=== PATIENT | male | born 1990 | race Caucasian/White ===

== ENCOUNTER → 2019-06-06 15:59 | Outpatient (CLI) | payer BC, SELFPAY ==
--- NOTE | 2019-06-06 16:07 | XR_ITS ---
PROCEDURE: XR ANKLE WT BEARING LT MIN 3V CLINICAL INDICATION: fracture Follow-up fracture COMPARISON: XR ANKLE LT MIN 3V from 05/16/2019 FINDINGS: There is an old avulsion fracture at the tip of the medial malleolus. No acute fracture or dislocation is evident. IMPRESSION: No change with no acute finding Dictated by: Ad Rucker MD 06/06/2019 16:43 Electronically signed by Ad Rucker MD in [place] 06/06/2019 16:43
== END ==
PROVIDERS: Visit Provider Podiatrist
DX: S82.892A Other fracture of left lower leg, initial encounter for closed fracture (principal)
CPT/HCPCS: 73610

== ENCOUNTER → 2019-06-29 11:12 | Outpatient (CLI) | payer BC, SELFPAY ==
--- NOTE | 2019-06-29 11:16 | XR_ITS ---
PROCEDURE: XR ANKLE WT BEARING RT MIN 3V CLINICAL INDICATION: ankle pain COMPARISON: XR ANKLE LT MIN 3V from 05/16/2019 XR ANKLE WT BEARING LT MIN 3V from 06/29/2019 FINDINGS: There is an old fracture versus accessory center of ossification at the tip of the medial malleolus. No other significant anomalies are evident. Joint spaces are well preserved. IMPRESSION: No acute finding. Old fracture versus unfused ossification center at the medial malleolus Dictated by: Ad Rucker MD 06/29/2019 14:55 Electronically signed by Ad Rucker MD in [place] 06/29/2019 14:55
--- NOTE | 2019-06-29 11:16 | XR_ITS ---
PROCEDURE: XR ANKLE WT BEARING LT MIN 3V CLINICAL INDICATION: fracture/dislocation Follow-up fracture COMPARISON: XR FOOT LT MIN 3V from 05/16/2019 XR ANKLE LT MIN 3V from 05/16/2019 XR ANKLE WT BEARING LT MIN 3V from 06/06/2019 FINDINGS: Old avulsion fracture of the medial malleolus once again noted. Minimal hyperostosis along the neck of the talus anteriorly is noted. IMPRESSION: Chronic changes, no acute finding Dictated by: Ad Rucker MD 06/29/2019 14:48 Electronically signed by Ad Rucker MD in [place] 06/29/2019 14:48
== END ==
PROVIDERS: Visit Provider Podiatrist
DX: S82.892A Other fracture of left lower leg, initial encounter for closed fracture (principal); M79.672 Pain in left foot; M79.671 Pain in right foot
CPT/HCPCS: 73610

== ENCOUNTER 2021-12-16 12:37 | Emergency (ER) | payer SELFPAY ==
[2021-12-16 12:45] VITALS: BP 122/88; PULSE 125; RESP 18; TEMP 38.1; O2SAT 95; BMI 29.8
[2021-12-16 13:38] VITALS: BP 122/88; PULSE 125; RESP 20; TEMP 38.1; O2SAT 100; BMI 29.8
[2021-12-16 13:43] LABS: UTC Influenza A Antigen Negative (Negative); UTC Influenza B Antigen Negative (Negative)
--- NOTE | 2021-12-16 14:37 | HMH.EDUTC ---
[facility] [place] Disposition Clinical Impression: Viral syndrome Pharyngitis Qualifiers: Pharyngitis/tonsillitis etiology: unspecified etiology Qualified Code(s): J02.9 - Acute pharyngitis, unspecified Disposition: Home, Self-Care Condition on Discharge: Good Instructions: DI for Strep Throat Additional Instructions: Drink plenty of fluids. Take tylenol or ibuprofen for pain or fever. Take the medications as directed. Follow up with your regular doctor. GO TO THE ER FOR ANY WORSENING SYMPTOMS Prescriptions: Promethazine/Dextromethorphan [Promethazine-Dm Syrup] 5 ml PO Q6HP PRN #240 ml PRN Reason: Cough [facility]: [facility] Ibuprofen [Ibuprofen 800mg Tablet] 800 mg PO Q8HP PRN #30 tab PRN Reason: Moderate Pain Transmission Status[facility] Ondansetron [Zofran 4mg ODT] 4 mg PO Q8HP PRN #20 tab PRN Reason: Nausea Transmission Status[facility] Azithromycin [Z-Jb 250mg Tab*] 250 mg PO UD DOSE PK #6 tab Transmission Status: [facility] Referrals: Cuauhtemoc Lilly MD [Primary Care Provider] - Forms: Work/School Release Time of Disposition: 14:44 Medical Decision Making - Medical Records Medical records reviewed: No: I reviewed the patient's medical records. - Roberto Carlos Inquiry Pt receiving controlled substance: No Vital Signs: 12/16/21 12:45 12/16/21 13:38 12/16/21 15:05 Temperature 100.5 F H 100.5 F H 100.5 F H Temperature Source Oral Oral Pulse Rate 125 H Pulse Rate [Right Radial] 125 H 125 H Respiratory Rate 18 20 20 Blood Pressure 122/88 Blood Pressure [Right Arm] 122/88 122/88 Blood Pressure Mean [Right Arm] 99 99 Blood Pressure Position [Right Arm] Sitting 02 Sat by Pulse Oximetry 95 100 Oxygen Delivery Method Room Air - Lab Data Lab results reviewed: Yes: I reviewed the patient's lab results. Lab Results 12/16/21 13:22: Influenza Type A Ag Negative, Influenza Type B Ag Negative 12/16/21 14:26: Group A Strep Rapid Negative 12/16/21 14:50: Chlamy pneumoniae PCR Not detected, Adenovirus (PCR) Not detected, B. pertussis DNA (PCR) Not detected, Coronavirus OC43 (PCR) Not detected, Coronavirus HKU1 (PCR) Not detected, Coronavirus 229E (PCR) Not detected, SARS-CoV-2 (PCR) Detected A, Coronavirus NL63 (PCR) Not detected, Human Metapneumovir PCR Not detected, Influenza A (H1) PCR Not detected, Influ A (H1N1/09) PCR Not detected, Influenza A (H3) PCR Not detected, Influenza Type A (PCR) Not detected, Influenza Type B (PCR) Not detected, M. pneumoniae (PCR) Not detected, Parainfluenza 1 (PCR) Not detected, Parainfluenza 2 (PCR) Not detected, Parainfluenza 3 (PCR) Not detected, Parainfluenza 4 (PCR) Not detected, RSV (PCR) Not detected, Entero/Rhino (PCR) Not detected Orders (Tests/Meds): ORDERS Category Date Time Status Strep Screen Confirmation Stat Micro 12/16/21 14:26 Received [facility] [place] HPI - General Stated complaint: ROSE, fever, confusion, nausea Time Seen by Provider: 12/16/21 12:55 Mode of Arrival: Ambulatory Source of Information: Patient Limitations: No Limitations Description of Symptoms (Recalled from Triage Doc. by RN): pt c/o fever, cough, nausea, fever HEENT Symptoms (Recalled from RN notes): No Resp Symptoms (Recalled from RN notes): Yes Skin Symptoms (Recalled from RN notes): No MS Symptoms (Recalled from RN notes): No Functional Status (Recalled from RN notes): wnl - History of Present Illness Provider Complaint: He states that he has had a fever, body aches, chills and sore throat since yesterday. - Related Data Previous Rx's Medication Instructions Recorded cetirizine 10 mg tablet 10 mg PO DAILY #30 tab 07/23/20 fluticasone propionate 50 1 spray INTRANASAL DAILY #9.9 ml 07/23/20 mcg/actuation nasal spray,suspension Azithromycin [Z-Jb 250mg Tab*] 250 mg PO UD DOSE PK #6 tab 12/16/21 Ibuprofen [Ibuprofen 800mg 800 mg PO Q8HP
[2021-12-16 14:55] LABS: Adenovirus,PCR Not Detected (NotDetected); Bordetella Pertussis Not Detected (NotDetected); Chlamydophila Pneumoniae, PCR Not Detected (NotDetected); Coronavirus 229E Not Detected (NotDetected); Coronavirus NL63 Not Detected (NotDetected); Coronavirus OC43 Not Detected (NotDetected); Coronovirus HKU1,PCR Not Detected (NotDetected); Human Metapneumovirus Not Detected (NotDetected); Influenza A, PCR Not Detected (NotDetected); Influenza AH1, 2009 Not Detected (NotDetected); Influenza AH1, PCR Not Detected (NotDetected); Influenza AH3,PCR Not Detected (NotDetected); Influenza B, PCR Not Detected (NotDetected); Mycoplasma Pneumoniae, PCR Not Detected (NotDetected); Parainfluenza 1, PCR Not Detected (NotDetected); Parainfluenza 2, PCR Not Detected (NotDetected); Parainfluenza 3, PCR Not Detected (NotDetected); Parainfluenza 4, PCR Not Detected (NotDetected); Respiratory Syncytial Virus Not Detected (NotDetected); Rhinovirus/Enterovirus Not Detected (NotDetected)
[2021-12-16 14:56] LABS: Strep Scrn Group A (Rapid) Negative (Negative)
[2021-12-16 15:05] VITALS: BP 122/88; PULSE 125; RESP 20; TEMP 38.1
[2021-12-16 19:28] LABS: Coronavirus 19, PCR Detected (NotDetected)
== END 2021-12-16 15:06 | disposition home or self-care (01) ==
PROVIDERS: Emergency Provider Nurse Practitioner Family; PCP Emergency Medicine
DX: U07.1 COVID-19 (principal); J02.9 Acute pharyngitis, unspecified; B34.9 Viral infection, unspecified; F17.210 Nicotine dependence, cigarettes, uncomplicated; Z79.1 Long term (current) use of non-steroidal anti-inflammatories (NSAID); Z79.52 Long term (current) use of systemic steroids; Z79.899 Other long term (current) drug therapy; Z82.49 Family history of ischemic heart disease and other diseases of the circulatory system; Z80.9 Family history of malignant neoplasm, unspecified; Z83.3 Family history of diabetes mellitus
CPT/HCPCS: 87430; 87581; 87632; 87798; 87804; 99213; C9803; G0463; U0003; U0005

== ENCOUNTER → 2022-09-25 09:21 | Outpatient (CLI) | payer BC, SELFPAY ==
--- NOTE | 2022-09-25 | CA_ITS ---
APPROVED REPORT Exam: Exercise Treadmill Technologist: Tamara Talley, Ht: 6 ft 0 in Wt: 204 lbs BSA: 2.15 m2 HR: 100 bpm BP: 120/93 mmHg Stress Test Details Test: Holden HR Resting HR: 102 bpm Max Heart Rate (APMHR): 188 bpm Max HR Achieved: 175 bpm Target HR (85% APMHR): 160 bpm % of APMHR: 93 Recovery HR: 118 bpm BP Resting BP: 117.0/90.0 mmHg Max BP: 167.0/100.0 mmHg Recovery BP: 160.0/99.0 mmHg ECG Clinical Reason for Termination: Target HR Achieved Stress Symptoms: Dyspnea Exercise duration: 10:14 min Highest Stage Achieved: IV Exercise capacity: 12.8 METs Overall Exercise Capacity for Age: Good Stress ECG Conclusion Target @ 8:06-10:14 Symptoms: SOA. No Chest Pain Arrhythmias/Ectopy: Rare PAC/PVC ST-T Changes: No J point elevation. Very minimal upsloping of ST segments but no actual elevation.. Normal variant. Normal stress test. Test Summary REST . . . . . . . Sitting REST . . . . . . . Standing REST 05:14 0.0 0.0 102 . 117/ 90 . . Stage 1 01:00 10.0 1.7 122 . . . . Stage 1 02:00 10.0 1.7 122 . . . . Stage 1 03:00 10.0 1.7 122 . 122/ 82 . . Stage 2 01:00 12.0 2.5 130 . . . . Stage 2 02:00 12.0 2.5 134 . . . . Stage 2 03:00 12.0 2.5 138 . 142/ 94 . . Stage 3 01:00 14.0 3.4 155 . . . . Stage 3 02:00 14.0 3.4 159 . 142/ 96 . . Stage 3 . . . . . . . Stage held Stage 3 . . . . . . . Stage resumed Stage 3 03:00 14.0 3.4 159 . 142/ 96 . . Stage 4 01:00 16.0 4.2 172 . . . . Stage 4 01:14 16.0 4.2 175 . . . Stop exercise at 10:14 RECOVERY 01:00 0.0 0.0 157 . 160/ 92 . . RECOVERY 02:00 0.0 0.0 137 . 160/ 92 . . RECOVERY 03:00 0.0 0.0 124 . 167/100 . . RECOVERY 04:00 0.0 0.0 126 . 160/ 95 . . RECOVERY 04:57 0.0 0.0 118 . 160/ 99 . . Electronically signed by : Salazar Valladares MD 09/26/2022 08:54:58
--- NOTE | 2022-09-25 09:23 | CA_ITS ---
APPROVED REPORT EXAM: Comprehensive 2D, Doppler, and color-flow Echocardiogram Rehab Spec: Stephanie Elizalde RVT Ht: 6 ft 0 in Wt: 204lbs BSA: 2.15 BP: 118/82 mmHg Indications: CP,SMOKER,CDL CLEARANCE 2D Dimensions LVOT 2.36 cm (M/F) 1.5-2.5 LA Volume 19.50 mL LA Volume Index 9.07 mL/m2 (M/F) 16-34 M-Mode Dimensions RVDd 3.00 cm (0.9-2.6) LA Diam 3.05 cm (1.9-4.0) LVDd 4.49 cm (3.5-5.7) Ao Diam 3.34 cm (2.0-3.7) LVDs 3.00 cm (3.5-5.7) IVSd 1.31 cm (0.6-1.1) PWd 1.14 cm (0.6-1.1) EF (Teich) 62.00% FS 33.20% EDV (Teich) 92.00 mL TAPSE 1.93 (<1.7) ESV (Teich) 35.00 mL LV Diastology E Decel Time 150.00 (160-240 msec) E/A Ratio 0.9 MED E' 8.40 (< 7 cm/sec) E'/MED E' Ratio 6.83 (>14) LAT E' 11.90 (<10 cm/sec) E/LAT E' Ratio 4.82 (>14) Aortic Valve AO Peak GR. 5.00 mmHg Mitral Valve MV E Max Massimo. 57.00 (40-130 cm/s) MV A Velocity 66.00 (40-130 cm/s) E/A Ratio 0.88 MV Decel. Time 150.00 (160-240 ms) MV PHT 44.00 ms Pulmonary Valve PV Peak Velocity 80.00 (50-150 cm/s) Left Ventricle Left atrium normal size left ventricle is normal size, estimated ejection fraction 55% with no regional wall motion abnormality, diastolic parameters are within normal range. Right Ventricle Right atrium and right ventricular mildly enlarged with normal contractility. Aortic Valve Aortic valve is grossly normal there is no aortic stenosis aortic insufficiency. Mitral Valve Mitral valve grossly normal, there is no mitral regurgitation. Tricuspid Valve Tricuspid valve grossly normal, there is no tricuspid regurgitation. Pulmonic Valve Pulmonic valve is poorly visualized. Great Vessels Aortic root is normal size. Inferior vena cava is normal size with normal inspiratory collapse. Pericardium No significant pericardial effusion noted. Conclusion 1. Normal left ventricular size preserved left ventricular systolic function, estimated ejection fraction 55% with no regional wall motion abnormality, diastolic parameters are within normal range. 2. Right ventricle is mildly enlarged with normal contractility. 3. No significant pericardial effusion. 4. Inferior vena cava is normal size with normal inspiratory collapse. Electronically signed by : Lenin Lazaro MD 09/25/2022 12:42:11
== END ==
PROVIDERS: PCP Emergency Medicine; Visit Provider Nurse Practitioner Family
DX: R07.9 Chest pain, unspecified (principal)
CPT/HCPCS: 93017; 93306

== ENCOUNTER → 2022-12-03 10:44 | Outpatient (CLI) | payer BC, SELFPAY ==
--- NOTE | 2022-12-03 10:48 | XR_ITS ---
FINAL REPORT CLINICAL HISTORY: smoker/chest pain FINDINGS: Two views of the chest were obtained. The heart size and pulmonary vascularity are within normal limits. The mediastinum is normal. There is a small right suprahilar opacity of uncertain etiology. There is no pneumothorax. The bony thorax is intact. IMPRESSION: Small right suprahilar opacity of uncertain etiology. Follow-up radiograph or chest CT is recommended. Reviewed, Interpreted and Dictated by Jakob Hoffmann III, MD Transcribed by Chichi Hayes Authenticated and [facility]
== END ==
PROVIDERS: PCP Nurse Practitioner; Visit Provider Nurse Practitioner Family
DX: R07.9 Chest pain, unspecified (principal); I51.7 Cardiomegaly; R94.31 Abnormal electrocardiogram [ECG] [EKG]; Z72.0 Tobacco use
CPT/HCPCS: 71046

== ENCOUNTER → 2022-12-18 13:32 | Outpatient (CLI) | payer BC, SELFPAY ==
--- NOTE | 2022-12-18 13:32 | CT_ITS ---
FINAL REPORT TECHNIQUE: After the administration of intravenous contrast, axial images through the chest were performed by computed tomography.This study was performed with techniques to keep radiation doses as low as reasonably achievable, (ALARA). Individualized dose reduction techniques using automated exposure control or adjustment of mA and/or kV according to the patient''s size were employed. CLINICAL HISTORY: abnormal chest x-ray COMPARISON: 12/03/2022 FINDINGS: The heart size is normal. There is no pericardial or pleural effusion. There is minimal scar or atelectasis in the right upper lobe abutting the major fissure. No lung mass or pneumonia is identified. There is mild right suprahilar adenopathy measuring 2 cm. Left hilar adenopathy is seen measuring 2.2 x 1.3 cm. There is mild right paratracheal and mild left pre-vascular adenopathy. Limited images of the upper abdomen are unremarkable. IMPRESSION: No lung mass or pneumonia. Mild mediastinal and hilar adenopathy. Right hilar adenopathy likely attributes to chest radiograph abnormality. Recommend chest CT follow-up in 3 months. Reviewed, Interpreted and Dictated by Maddy Head MD Transcribed by Shelby Campos Authenticated and [facility]
== END ==
PROVIDERS: PCP Nurse Practitioner; Visit Provider Nurse Practitioner Family
DX: R93.89 Abnormal findings on diagnostic imaging of other specified body structures (principal); G47.30 Sleep apnea, unspecified; R06.83 Snoring
CPT/HCPCS: 71260; G0399; Q9967